=== PATIENT | female | born 1990 | race Caucasian/White ===

== ENCOUNTER 2021-07-31 03:35 | Inpatient (IN) | payer MEDICAID ==
[2021-07-31] MEDS ORDERED: Nalbuphine 10 MG/1 ML Vial IVPUSH PRN (03:59)
[2021-07-31] MEDS ORDERED: Lidocaine 1% 50 ML MDV INJECT ONE (03:59)
[2021-07-31] MEDS ORDERED: Sodium Chloride 0.9% 10 ML Syringe FLUSH PRN (03:59)
[2021-07-31] MEDS ORDERED: Oxytocin/Lactated Ringers 10 UNIT/1,000 ML BAG IV SCH ×2 (04:00)
[2021-07-31] MEDS ORDERED: Lactated Ringers 1,000 ML IV SCH (04:00)
[2021-07-31] MEDS ORDERED: Ampicillin 2 GM in Sodium Chloride 0.9% 100 ML IV ONE (04:15)
[2021-07-31] MEDS ORDERED: Ampicillin 1 GM in Sodium Chloride 0.9% 100 ML IV SCH (08:30)
[2021-07-31] MEDS ORDERED: Azithromycin 500 MG in Sodium Chloride 0.9% 250 ML IV ONE (09:00)
[2021-07-31] MEDS ORDERED: Sodium Chloride 0.9% 10 ML Syringe FLUSH SCH (09:00)
[2021-07-31] MEDS ORDERED: Metoclopramide 10 MG/2 ML SDV IVPUSH ONE (09:01)
[2021-07-31] MEDS ORDERED: Citric Acid/Sodium Citrate Solution 30 ML Cup PO ONE (09:01)
[2021-07-31] MEDS ORDERED: ceFAZolin 1 GM Vial ONE (09:08)
[2021-07-31] MEDS ORDERED: Oxytocin 10 Units/1 ML SDV ONE (09:08)
[2021-07-31] MEDS ORDERED: Ondansetron 4 MG/2 ML SDV ONE (09:09)
[2021-07-31] MEDS ORDERED: Morphine PF 10 MG/10 ML SDV ONE (09:09)
[2021-07-31] MEDS ORDERED: Bupivacaine 0.5% 30 ML SDV ONE (09:12)
[2021-07-31] MEDS ORDERED: Lactated Ringers 1,000 ML ONE ×2 (09:40→10:03)
[2021-07-31] MEDS ORDERED: Ketorolac 30 MG/ML SDV ONE (10:03)
[2021-07-31] MEDS ORDERED: Simethicone 80 MG Tab.Chew PO PRN (10:13)
[2021-07-31] MEDS ORDERED: Ibuprofen 800 MG Tab PO SCH (12:28)
[2021-07-31] MEDS ORDERED: Ondansetron 4 MG/2 ML SDV IV PRN (12:28)
[2021-07-31] MEDS ORDERED: Naloxone 0.4 MG/ML SDV IVPUSH PRN (12:28)
[2021-07-31] MEDS ORDERED: ePHEDrine 50 MG/ML SDV IVPUSH PRN (12:28)
[2021-07-31] MEDS ORDERED: Acetaminophen/oxyCODONE 325-5 MG Tab PO PRN ×2 (12:28)
[2021-07-31] MEDS ORDERED: diphenhydrAMINE 50 MG/ML SDV IVPUSH PRN (12:28)
[2021-07-31] MEDS ORDERED: Dextrose 5%-Lactated Ringers 1,000 ML IV SCH (12:28)
[2021-07-31] MEDS: Ibuprofen 800 MG Tab PO SCH (15:47)
[2021-07-31] MEDS: Docusate Sodium 100 MG Cap PO PRN (21:35)
[2021-08-01] MEDS: Ibuprofen 800 MG Tab PO SCH ×3 (00:37→15:33)
[2021-08-01] MEDS: Docusate Sodium 100 MG Cap PO PRN (14:30)
[2021-08-02] MEDS: Ibuprofen 800 MG Tab PO SCH ×2 (00:27→09:49)
[2021-08-02] MEDS: Docusate Sodium 100 MG Cap PO PRN (09:49)
== END 2021-08-02 11:00 | disposition home or self-care (01) | DRG 788 ==
LOC: JD.OBCHECK 03:35 → JD.OB 03:39 → JD.OBCHECK 03:59 → JD.OB 04:00 → OBSVTOIN 09:01 → JD.OB 12:35
PROVIDERS: ADMIT Obstetrics & Gynecology; ATTEND Obstetrics & Gynecology
PROC: 10D00Z1 Extraction of Products of Conception, Low, Open Approach (ICD-10-PCS; principal; 2021-07-31)
PROC: 10907ZC Drainage of Amniotic Fluid, Therapeutic from Products of Conception, Via Natural or Artificial Opening (ICD-10-PCS; 2021-07-31)
DX: O99.824 Streptococcus B carrier state complicating childbirth (principal); Z3A.37 37 weeks gestation of pregnancy; O32.1XX0 Maternal care for breech presentation, not applicable or unspecified; Z37.0 Single live birth
CPT/HCPCS: 01961; 36415; 59025; 85025; 86592; 86850; 86900; 86901; A9270-GY; J0290; J0456; J0690; J1885; J2274; J2370; J2405; J2590; J2765; J3490; J7050; J7120; J7121